=== PATIENT | female | born 1995 | race Caucasian/White ===

== ENCOUNTER 2018-05-13 11:23 | Emergency (ER) | payer OTHER ==
[2018-05-13] MEDS ORDERED: HYDROCODONE/APAP 5/325 TAB PO ONE (12:04)
--- NOTE | 2018-05-13 12:23 | EDPHY ---
H & P Time Seen by Provider: 05/13/18 11:32 HPI/ROS: HPI Right foot injury. 23-year-old female by private vehicle with her mother. This patient slid awkwardly down a couple of stairs, twisting the distal aspect of her right medial foot and big toe awkwardly. She presents to the emergency department complaining of isolated pain to the metatarsal phalangeal joint area of the right big toe. She denies any other injury or complaint. She did not hit her head. ROS: Constitutional: No fever, no chills. No weakness. Musculoskeletal: No back pain. No neck pain. As above. No other extremity pain. Skin: No rashes. No lacerations or abrasions. Neurological: No headache. No focal weakness or altered sensation. Past medical history: Includes asthma. Social history: Nonsmoker. Here with her mother. No alcohol. Physical Exam: General Appearance: Alert, no distress. This patient is responding to questions appropriately and in full sentences. This patient appears well- hydrated and well-nourished. Eyes: Pupils equal and round no pallor or injection. No lid edema, erythema or injection. Right foot exam: Significant for tenderness on palpation with swelling and subtle ecchymosis isolated to the right dorsal metatarsal phalangeal joint of the big toe. She is able to dorsiflex her big toe against soft resistance. The other bony aspects of the foot are nontender on palpation. There is no tenderness on palpation of the bony aspects of the right ankle. The right foot is neurovascularly intact. Neurological: Motor sensory function is grossly intact. Cranial nerves are normal. Skin: Warm and dry, no rashes. Extremities are symmetrical except noted. All joints range without pain or impingement except noted. Psychiatric: No agitation. No depression. Database: EKG: Imaging: Right foot x-ray series: Soft tissue swelling over the 1st metatarsal phalangeal joint. Otherwise negative for fracture, subluxation, dislocation. Interpreted by me. Procedures: Emergency department course: Triage vital signs reviewed and are normal. She was given 2 [place] tablets for pain control. She took ibuprofen prior to arrival. X-rays as above obtained. 12:15 p.m., patient was re-evaluated. Resting comfortably at this time. I discussed the results of her x-ray and diagnosis of likely sprain to the 1st metatarsal phalangeal joint. She was fitted with an orthopedic boot. She was instructed on weight-bearing while in the boot as tolerated. She does have crutches. I discussed follow-up with Orthopedics on Wednesday or Wednesday of next week for re-evaluation and possible advanced imaging including MRI for further diagnostic capability. Pain medication dosing discussed. Return to emergency department precautions were reviewed with her and her mother. All of their questions were answered. The patient was discharged home in good condition with her mother. Differential Diagnosis: The differential diagnosis on this patient includes but is not limited to sprain of the 1st metatarsal phalangeal joint right foot. Fracture, subluxation , dislocation of the right foot unlikely. This represents a partial list of diagnoses considered. These considerations are based on history, physical exam , past history, reassessment and diagnostic testing. Smoking Status: Never smoked Constitutional: Initial Vital Signs Temperature (C) 36.9 C 05/13/18 11:31 Heart Rate 77 05/13/18 11:31 Respiratory Rate 14 05/13/18 11:31 Blood Pressure 123/77 H 05/13/18 11:31 O2 Sat (%) 96 05/13/18 11:31 O2 Delivery Mode Room Air Allergies/Adverse Reactions: No Known Allergies Allergy (Verified 05/13/18 11:37) Home Medications: Medication Instructions Recorded Albuterol PRN 05/13/18 Hydrocodone/APAP 5/325 [[place] 1 - 2 tab PO Q4-6PRN PRN #10 tab 05/13/18 5/325 (*)] Departure - Departure Disposition: Home, Routine, Self-Care Clinical Impression: Right foot sprain Condition: Good Instructions: Foot Sprain (ED) Additional Instructions: Read and follow provided instructions. Weight-bearing to your right foot as tolerated with foot in the boot. Follow-up with Orthopedics, as discussed early next week for re-evaluation and further management. Ibuprofen dosin mg every 6 hours with meals for the next 3 days only. Take only as needed for pain. Narcotic pain medication dosin-2 every 4-6 hours as needed for pain. Do not drive while on this medication. Return to the emergency department for worsening pain, swelling, discoloration or other serious concerns. Referrals: Sheldon Leach MD [Medical Doctor] - As per Instructions Prescriptions: Hydrocodone/APAP 5/325 [[place] 5/325 (*)] 1 - 2 tab PO Q4-6PRN PRN #10 tab PRN Reason: Pain, Moderate
[2018-05-13 13:02] VITALS: BP 120/73
== END 2018-05-13 12:59 | disposition home or self-care (01) ==
LOC: CED 11:23
DX: S93.601A Unspecified sprain of right foot, initial encounter (principal); X50.1XXA Overexertion from prolonged static or awkward postures, initial encounter; Y92.9 Unspecified place or not applicable; Y93.9 Activity, unspecified; Y99.9 Unspecified external cause status
CPT/HCPCS: 73630-PO; 99283-ER; L4386-ER